=== PATIENT | male | born 1995 | race Caucasian/White ===

== ENCOUNTER 2019-01-03 10:16 | Emergency (ER) | payer BC ==
[2019-01-03] MEDS ORDERED: Ketorolac 60 MG/2 ML SDV IM ONE (11:05)
--- NOTE | 2019-01-03 11:09 | EDM.PDOC ---
ED HPI GENERAL MEDICAL PROBLEM - General Chief Complaint: Lower Extremity Injury/Pain Stated Complaint: LEFT KNEE PAIN Time Seen by Provider: 01/03/19 10:59 Source of Information: Reports: Patient, RN Notes Reviewed History Limitations: Reports: No Limitations - History of Present Illness INITIAL COMMENTS - FREE TEXT/NARRATIVE: 23-year-old gentleman presents emergency department today complaint of left knee pain, he states the pain is developed over the last 12 hours he has been working unloading a truck and stocking shelves he also works out in spared time he states denies any trauma or twisting injury that he is aware Left Knee Pain Score (Numeric/FACES): 8 - Related Data Allergies Allergy/AdvReac Type Severity Reaction Status Date / Time No Known Allergies Allergy Verified 01/03/19 10:48 Home Meds: Home Meds NK [No Known Home Meds] 01/03/19 [History] Past Medical History - Past Health History Medical/Surgical History: Denies Medical/Surgical History Social & Family History - Tobacco Use Smoking Status *Q: Current Every Day Smoker Years of Tobacco use: 2 Packs/Tins Daily: 0.5 - Caffeine Use Caffeine Use: Reports: Energy Drinks - Recreational Drug Use Recreational Drug Use: No Review of Systems - Review of Systems Review Of Systems: See Below Musculoskeletal: Reports: Joint Pain (Left knee pain) ED EXAM, GENERAL - Physical Exam Exam: See Below Free Text/Narrative:: Examination left knee on appreciate any erythema and there is no edema noted he does have joint line tenderness to the lateral aspect superior portion and varus maneuver does elicit pain anterior drawer and Emery's are both negative Exam Limited By: No Limitations General Appearance: Alert, WD/WN, No Apparent Distress Course - Vital Signs Last Recorded V/S: Last Vital Signs Temp 98.8 F 01/03/19 10:45 Pulse 57 L 01/03/19 10:45 Resp 16 01/03/19 10:45 BP 132/47 L 01/03/19 10:45 Pulse Ox 96 01/03/19 10:45 - Orders/Labs/Meds Orders: Active Orders 24 hr Category Date Time Status Ketorolac [Toradol] Med 01/03/19 11:05 Once 60 mg IM ONETIME ONE Departure - Departure Time of Disposition: 11:07 Disposition: Home, Self-Care 01 Condition: Fair Clinical Impression: Strain of left knee Qualifiers: Encounter type: initial encounter Qualified Code(s): S86.912A - Strain of unspecified muscle(s) and tendon(s) at lower leg level, left leg, initial encounter - Discharge Information Referrals: Tomas Rodgers MD [Primary Care Provider] - Forms: ED Department Discharge, ED Return to Work/School Form Additional Instructions: Continue to use Motrin or Tylenol as needed for pain control recommend rest ice , follow-up with your primary care in 2-3 days if no improvement - My Orders Last 24 Hours: My Active Orders 01/03/19 11:05 Ketorolac [Toradol] 60 mg IM ONETIME ONE - Assessment/Plan Last 24 Hours: My Active Orders 01/03/19 11:05 Ketorolac [Toradol] 60 mg IM ONETIME ONE Plan: Assessment Acuity = acute Site and laterality = left knee strain Etiology = secondary to overuse injury Manifestations = pain Location of injury = Home Lab values = none Plan Elected to start with conservative therapy he was provided 60 mg Toradol IM in the emergency department he will continue to use nonsteroidal anti- inflammatories rest ice and elevation were called for 2 days provided he'll follow-up primary care 3-5 days if no improvement This note was dictated using [employer] voice recognition software please call with any questions on syntax or grammar.
== END 2019-01-03 11:23 | disposition home or self-care (01) ==
LOC: JP.ED 10:16
DX: S86.912A Strain of unspecified muscle(s) and tendon(s) at lower leg level, left leg, initial encounter (principal); F17.210 Nicotine dependence, cigarettes, uncomplicated; X50.9XXA Other and unspecified overexertion or strenuous movements or postures, initial encounter; Y99.0 Civilian activity done for income or pay
CPT/HCPCS: 96372; 99283; J1885

== ENCOUNTER 2019-02-24 18:47 | Emergency (ER) | payer BC, OTHER ==
--- NOTE | 2019-02-24 19:23 | EDM.PDOC ---
ED HPI GENERAL MEDICAL PROBLEM - General Chief Complaint: Lower Extremity Injury/Pain Stated Complaint: HURT KNEE AT WORK Time Seen by Provider: 02/24/19 19:18 Source of Information: Reports: Patient, Old Records, RN Notes Reviewed History Limitations: Reports: No Limitations - History of Present Illness INITIAL COMMENTS - FREE TEXT/NARRATIVE: 23-year-old gentleman presents emergency department today complaint of left knee pain, he states he believes he injured his knee at work he is not sure of the mechanism of action going on now for over a month however it was exacerbated at work today Left Posterior Knee Pain Score (Numeric/FACES): 6 - Related Data Allergies Allergy/AdvReac Type Severity Reaction Status Date / Time No Known Allergies Allergy Verified 01/03/19 10:48 Home Meds: Home Meds Ibuprofen 1,600 mg PO DAILY 02/24/19 [History] Past Medical History - Past Health History Medical/Surgical History: Denies Medical/Surgical History Social & Family History - Family History Family Medical History: Noncontributory - Tobacco Use Smoking Status *Q: Former Smoker Years of Tobacco use: 4 Used Tobacco, but Quit: Yes Month/Year Tobacco Last Used: 08/2014 - Caffeine Use Caffeine Use: Reports: None - Recreational Drug Use Recreational Drug Use: No Review of Systems - Review of Systems Review Of Systems: See Below Musculoskeletal: Reports: Joint Pain ED EXAM, GENERAL - Physical Exam Exam: See Below (Knee pain) Exam Limited By: No Limitations General Appearance: Alert, WD/WN, No Apparent Distress Respiratory/Chest: No Respiratory Distress Extremities: Normal Range of Motion, Non-Tender, No Pedal Edema Course - Vital Signs Last Recorded V/S: Last Vital Signs Temp 96.3 F 02/24/19 19:07 Pulse 56 L 02/24/19 19:07 Resp 17 02/24/19 19:07 BP 114/44 L 02/24/19 19:07 Pulse Ox 97 02/24/19 19:07 Departure - Departure Time of Disposition: 20:01 Disposition: Home, Self-Care 01 Condition: Fair Clinical Impression: Left knee pain Qualifiers: Chronicity: acute Qualified Code(s): M25.562 - Pain in left knee - Discharge Information Referrals: Tomas Rodgers MD [Primary Care Provider] - Forms: ED Department Discharge Additional Instructions: Continue to use your Advil or Tylenol as needed for pain control, orthopedics will call you for an appointment time plan to see Dr. Bal from orthopedics , call return to the emergency department worsening of symptoms - Assessment/Plan Plan: Assessment Acuity = acute Site and laterality = left knee pain Etiology = unclear etiology Manifestations = none Location of injury = Home Lab values = x-ray shows no acute process Plan I did review x-ray results with him also set him up for consultation with orthopedics next week, continue to use NSAIDs as needed This note was dictated using [employer] voice recognition software please call with any questions on syntax or grammar.
--- NOTE | 2019-02-24 19:55 | CRLCR ---
HISTORY: Knee pain. FINDINGS: Three views of the left knee are provided. There are no findings for fracture, dislocation, arthritic change, effusion or loose body. Dictated by Kedar Christian MD @ Feb 24 2019 7:54PM Signed by Dr. Kedar Christian @ Feb 24 2019 7:54PM
== END 2019-02-24 20:05 | disposition home or self-care (01) ==
LOC: JP.ED 18:47
DX: M25.562 Pain in left knee (principal); Z87.891 Personal history of nicotine dependence
CPT/HCPCS: 73562-LT; 99283; 99283-25